=== PATIENT | female | born 1990 | race Caucasian/White ===

== ENCOUNTER 2017-05-27 14:48 | Emergency (ER) | payer OTHER, MEDICAID ==
[2017-05-27] MEDS ORDERED: CLINDAMYCIN 150 MG CAP PO ONE (15:54)
--- NOTE | 2017-05-27 15:59 | Emergency Department Record ---
History of Present Illness - General Chief complaint: Abscess Stated complaint: LT BREAST PAIN,LUMP,SWELLING Time Seen by Provider: 05/27/17 15:49 Source: Patient Mode of Arrival: Ambulatory Limitations: No limitations - History of Present Illness Initial comments: The patient is here due to 2 days of L breast fullness with very minimal drainage from the nipple and mild pain. She is concerned she is getting an infection. The patient denies being and is not breast feeding. MD complaint: Other Onset/Timin -: Days(s) Severity: Mild Severity scale (1-10): 3 Quality: Aching Consistency: Constant Improves with: None Worsens with: None Context: None Associated symptoms: Denies other symptoms Treatment Prior to Arrival Comment:: Motrin, Tylenol, cold and warm compresses - Related Data Home Medications Medication Instructions Recorded Confirmed Last Taken Oxycodone HCl/Acetaminophen 1 tab PO Q6H PRN 05/27/17 05/27/17 05/27/17 [Percocet 10mg/325mg] Previous Rx's Medication Instructions Recorded Clindamycin HCl [Cleocin HCl] 300 mg PO QID #28 capsule 05/27/17 Allergies Allergy/AdvReac Type Severity Reaction Status Date / Time No Known Drug Allergies Allergy Verified 05/27/17 15:17 Travel Screening - Travel/Exposure Within Last 30 Days Have you traveled within the last 30 days?: No Review of Systems Constitutional: Denies: Chills, Fever Eyes: Denies: Eye discharge ENT: Denies: Congestion Past Medical History - SOCIAL HISTORY Smoking Status: Current every day smoker Alcohol Use: None Drug Use: Occasional Drug Use Detail:: Marijuana - RESPIRATORY Hx Respiratory Disorders: No - CARDIOVASCULAR Hx Cardio Disorders: No - NEURO Hx Neuro Disorders: No - GI Hx GI Disorders: No - Hx Genitourinary Disorders: No - ENDOCRINE Hx Endocrine Disorders: No - MUSCULOSKELETAL Hx Musculoskeletal Disorders: Yes Hx Back Injury: Yes - PSYCH Hx Psych Problems: No - HEMATOLOGY/ONCOLOGY Hx Hematology/Oncology Disorders: No Family Medical History Any Significant Family History?: No Physical Exam - General General Appearance: Alert, Oriented x3, Cooperative, No acute distress - Head Head exam: Atraumatic, Normocephalic, Normal inspection - Eye Eye exam: Normal appearance, PERRL - Neck Neck exam: Normal inspection, Full ROM. negative: Tenderness - Respiratory Respiratory exam: Normal lung sounds bilaterally. negative: Respiratory distress - Cardiovascular Cardiovascular Exam: Regular rate, Normal rhythm, Normal heart sounds, Other ( The L breast is mildly tender inferior to the nipple with very slight erythema and fullness. There is no abscess or any fluctuance.) Course Vital Signs 05/27/17 15:13 Temperature 98.0 F Pulse Rate 92 H Respiratory 18 Rate Blood Pressure 139/92 Pulse Ox 98 - Reevaluation(s) Reevaluation #1: I did discuss with the patient that it appears she has a mild L breast infection. She is to take the Clindamycin and use warm compresses and is to see her PCP for recheck in 1-2 days. 05/27/17 15:57 Disposition Disposition: Discharge Clinical Impression: Cellulitis of breast Disposition: Home, Self-Care Condition: (1) Good Instructions: Cellulitis (ED) Additional Instructions: Please use warm compresses to the L breast during the day every 2 hours. Take the Clindamcyin as directed. Please see your PCP for recheck in 1-2 days. Return to the ER for any worsening symptoms. Prescriptions: Clindamycin HCl [Cleocin HCl] 300 mg PO QID #28 capsule Forms: Patient Portal Access Time of Disposition: 15:59 Quality - Quality Measures Quality Measures: N/A - Blood Pressure Screening View Details: Yes Blood Pressure Classification: Hypertensive Reading Systolic Measurement: 139 Diastolic Measurement: 92 Screening for High Blood Pressure: < Pre-Hypertensive BP, F/U Documented > [ G8950] Pre-Hypertensive Follow-up Interventions: Follow-up with rescreen every year.
== END 2017-05-27 16:08 | disposition home or self-care (01) ==
LOC: ER 14:48
DX: N61.1 Abscess of the breast and nipple (principal)
CPT/HCPCS: 99282

== ENCOUNTER 2017-08-28 22:08 | Emergency (ER) | payer OTHER, MEDICAID ==
--- NOTE | 2017-08-28 22:44 | Emergency Department Record ---
History of Present Illness - General Chief Complaint: Ankle/Foot Injury Stated Complaint: RT FOOT PAIN Time Seen by Provider: 08/28/17 22:28 Source: Patient Mode of Arrival: Ambulatory Limitations: No limitations - History of Present Illness Initial Comments: The patient initially injured her R foot 4 months ago and it has been persistently painful since. She brought her daughter in to be seen so she figured she would get it checked out. She was told she may have a bunion which is causing the pain. The patient has been walking on it for 4 months with no difficulty but pain. Complaint: Foot injury Onset/Timin -: Month(s) Severity scale (1-10): 6 Improves With: Nothing Worsens With: Movement, Weight bearing Associated Symptoms: Swelling - Related Data Home Medications Medication Instructions Recorded Confirmed Last Taken Gabapentin [Neurontin] 300 mg PO BID 08/28/17 08/28/17 08/28/17 Allergies Allergy/AdvReac Type Severity Reaction Status Date / Time No Known Drug Allergies Allergy Verified 05/27/17 15:17 Travel Screening - Travel/Exposure Within Last 30 Days Have you traveled within the last 30 days?: No - Travel Symptoms Symptom Screening: None Review of Systems Constitutional: Denies: Chills, Fever Eyes: Denies: Eye discharge ENT: Denies: Congestion Respiratory: Denies: Cough Past Medical History - SOCIAL HISTORY Smoking Status: Current every day smoker - RESPIRATORY Hx Respiratory Disorders: No - CARDIOVASCULAR Hx Cardio Disorders: No - NEURO Hx Neuro Disorders: No - GI Hx GI Disorders: No - Hx Genitourinary Disorders: No - ENDOCRINE Hx Endocrine Disorders: No - MUSCULOSKELETAL Hx Musculoskeletal Disorders: Yes Hx Back Injury: Yes - PSYCH Hx Psych Problems: No - HEMATOLOGY/ONCOLOGY Hx Hematology/Oncology Disorders: No Family Medical History Any Significant Family History?: Yes Hx Cancer: Grandparents Hx Diabetes: Grandparents Hx HTN: Grandparents Physical Exam - General General Appearance: Alert, Cooperative, No acute distress - Head Head exam: Atraumatic, Normocephalic - Eye Eye exam: Normal appearance, PERRL - Extremities Extremities exam: Normal inspection (There is no swelling, bruising, or edema noted.), Full ROM, Tenderness (There is tenderness to the midfoot and plantar fascia area.), Other (There is no ankle swelling, bruising or tenderness. The ankle has normal ROM.). negative: Joint swelling - Neurological Neurological exam: Alert, Normal gait. negative: Abnormal gait, Motor sensory deficit Course Vital Signs 08/28/17 22:20 Temperature 98.6 F Pulse Rate 98 H Respiratory 16 Rate Blood Pressure 133/88 Pulse Ox 95 - Reevaluation(s) Reevaluation #1: I did explain to the patient that the xrays smith appear normal to me. She is to see her PCP or a Lead [employer] Developer for further evaluation. 08/28/17 23:09 Medical Decision Making - Data Complexity MDM Data: X-Ray Ordered and/or Reviewed - Radiology Data Radiology results: Image reviewed (R Foot: Neg for any acute abnormality.) Disposition Disposition: Discharge Clinical Impression: Chronic foot pain Qualifiers: Laterality: right Qualified Code(s): M79.671 - Pain in right foot Disposition: Home, Self-Care Condition: (1) Good Instructions: Arthralgia (ED) Additional Instructions: Please see your PCP or a Lead Android Developer for further evaluation of the foot pain. Forms: Patient Portal Access Time of Disposition: 23:10 Quality - Quality Measures Quality Measures: N/A - Blood Pressure Screening View Details: Yes Does Patient Have Any of the Following: No Blood Pressure Classification: Pre-Hypertensive BP Reading Systolic Measurement: 133 Diastolic Measurement: 88 Screening for High Blood Pressure: < Pre-Hypertensive BP, F/U Documented > [ G8950] Pre-Hypertensive Follow-up Interventions: Referral to alternative/primary care provider.
--- NOTE | 2017-08-30 18:04 | RADIOLOGY REPORT ---
EXAM: FOOT, RIGHT 3 VIEWS HISTORY: CONTINUED PAIN IN RIGHT FOOT FOUR MONTHS POST INJURY. TECHNIQUE: Three views of the right foot. COMPARISON: None. ENCOUNTER: Initial. FINDINGS: There is normal bone mineralization. No fracture, dislocation, or destructive bone lesion is seen. The articular relations are maintained. A developmental ossicle is suggested near the dorsal margin of the talonavicular joint. No focal soft tissue abnormality. IMPRESSION: NORMAL RIGHT FOOT. JOB NUMBER: [id number] MTDD
== END 2017-08-28 23:18 | disposition home or self-care (01) ==
LOC: ER 22:08
DX: M79.671 Pain in right foot (principal); G89.21 Chronic pain due to trauma
CPT/HCPCS: 99283

== ENCOUNTER 2018-04-16 20:06 | Emergency (ER) | payer OTHER, MEDICAID ==
[2018-04-16] MEDS ORDERED: KETOROLAC 30 MG/ML VIAL IVP ONE (20:48)
[2018-04-16] MEDS ORDERED: ONDANSETRON HCL IV 4 MG/2 ML VIAL IVP ONE (20:48)
--- NOTE | 2018-04-16 20:55 | Emergency Department Record ---
History of Present Illness - General Chief Complaint: Abdominal Pain Stated Complaint: ABDOMINAL PAIN Time Seen by Provider: 04/16/18 20:48 Source: Patient Mode of Arrival: Ambulatory Limitations: No limitations - History of Present Illness Initial Comments: 27 yo female presents to ED for evaluation of pelvic pain and bleeding following accidental removal of her Mirena. Patient reports lower abdominal pelvic cramping and pain associated with vaginal bleeding that has improved. Patient denies fevers, chills, or recent illness, does report 1 episode of vomiting this afternoon. Patient denies health problems at her baseline. MD Complaint: Abdominal pain Onset/Timin -: Days(s) Location: Suprapubic Radiation: Back, L flank Severity scale (1-10): 7 Quality: Aching, Cramping Consistency: Intermittent Improves With: Nothing Worsens With: Nothing Associated Symptoms: Nausea, Vomiting - Related Data Patient : No Allergies Allergy/AdvReac Type Severity Reaction Status Date / Time No Known Drug Allergies Allergy Verified 05/27/17 15:17 Travel Screening - Travel/Exposure Within Last 30 Days Have you traveled within the last 30 days?: No - Travel Symptoms Symptom Screening: None Review of Systems Constitutional: Denies: Chills, Fever, Malaise, Night sweats Eyes: Denies: Eye discharge, Eye pain ENT: Denies: Congestion, Ear pain, Epistaxis Respiratory: Denies: Cough, Dyspnea Cardiovascular: Denies: Chest pain, Dyspnea on exertion Endocrine: Denies: Fatigue, Heat or cold intolerance Gastrointestinal: Reports: Abdominal pain, Nausea, Vomiting. Denies: Constipation Genitourinary: Denies: Incontinence, Retention Musculoskeletal: Denies: Arthralgia, Back pain, Gout, Joint swelling Skin: Denies: Bruising, Change in color Neurological: Denies: Abnormal gait, Confusion, Headache, Seizure Psychiatric: Denies: Anxiety Hematological/Lymphatic: Denies: Anemia, Blood Clots Past Medical History - SOCIAL HISTORY Smoking Status: Current every day smoker - RESPIRATORY Hx Respiratory Disorders: No - CARDIOVASCULAR Hx Cardio Disorders: No - NEURO Hx Neuro Disorders: No - GI Hx GI Disorders: Yes Hx Hepatitis/Jaundice: Yes (Hepatitis C) - Hx Genitourinary Disorders: No - ENDOCRINE Hx Endocrine Disorders: No - MUSCULOSKELETAL Hx Musculoskeletal Disorders: Yes Hx Back Injury: Yes - PSYCH Hx Psych Problems: No - HEMATOLOGY/ONCOLOGY Hx Hematology/Oncology Disorders: No Family Medical History Any Significant Family History?: Yes Hx Cancer: Grandparents Hx Diabetes: Grandparents Hx HTN: Grandparents Physical Exam - General General Appearance: Alert, Oriented x3, Cooperative, Mild distress Limitations: No limitations - Head Head exam: Atraumatic, Normocephalic, Normal inspection Head exam detail: negative: Abrasion, Contusion, Lainez's sign, General tenderness, Hematoma, Laceration - Eye Eye exam: Normal appearance. negative: Conjunctival injection, Periorbital swelling, Periorbital tenderness, Scleral icterus - ENT Ear exam: negative: Auricular hematoma, Auricular trauma Nasal Exam: negative: Active bleeding, Discharge, Dried blood, Foreign body Mouth exam: negative: Drooling, Laceration, Muffled voice, Tongue elevation - Neck Neck exam: Normal inspection. negative: Meningismus, Tenderness - Respiratory Respiratory exam: Normal lung sounds bilaterally. negative: Rales, Respiratory distress, Rhonchi, Stridor - Cardiovascular Cardiovascular Exam: Regular rate, Normal rhythm, Normal heart sounds - GI/Abdominal GI/Abdominal exam: Soft, Tenderness (Mild-moderate TTP LLQ, suprapubic region, no rebound or guarding present. No peritoneal signs are present on examination. ). negative: Rebound, Rigid - Rectal Rectal exam: Deferred - exam: Normal speculum exam. negative: Vaginal bleeding, Vaginal discharge, Vaginal erythema - Extremities Extremities exam: Normal inspection. negative: Calf tenderness, Pedal edema, Tenderness - Back Back exam: Denies: CVA tenderness (R), CVA tenderness (L) - Neurological Neurological exam: Alert, Normal gait, Oriented X3 - Psychiatric Psychiatric exam: Normal affect, Normal mood - Skin Skin exam: Normal color. negative: Abrasion Type of lesion: negative: abrasion Course Vital Signs 04/16/18 20:23 Temperature 97.9 F Pulse Rate [ 96 H Pulse Ox Probe] Respiratory 16 Rate Blood Pressure 131/87 [Left Arm] Pulse Ox 98 - Reevaluation(s) Reevaluation #1: 04/16/18 20:54 Patient was seen and examined, as US is not currently available, will initiate laboratory studies and CT imaging to exclude uterine retained FB. Will administer Toradol and Zofran for her cramping symptoms. Patient agrees with the plan of care as discussed. Reevaluation #2: 04/16/18 21:43 Labs reviewed and are grossly unremarkable for an acute process. Patient is just now returning from CT imaging. Patient denies any improvement in her pain symptoms following toradol administration, will order Fentanyl 50 mcg for improved analgesia. Reevaluation #3: 04/16/18 22:06 CT Pelvis: No FB Normal appendix Normal ovaries No acute process Reevaluation #4: 04/16/18 22:21 Pelvic examination was performed, no bleeding or tears to the cervix are present on examination. Patient was again updated on all results, reports improvement in her pain symptoms following fentanyl, and appears stable for discharge at this time. Medical Decision Making - Lab Data Result diagrams: 04/16/18 21:04 04/16/18 21:04 Disposition Disposition: Discharge Clinical Impression: Pelvic pain Disposition: Home, Self-Care Condition: (2) Stable Instructions: Abdominal Pain (ED) Additional Instructions: Return to ED if your symptoms worsen or if you have any concerns. Ibuprofen as directed. Follow-up with Dr. Nesbitt in 1-3 days as directed. Forms: Patient Portal Access Time of Disposition: 22:29 Quality - Quality Measures Quality Measures: N/A - Blood Pressure Screening Does Patient Have Any of the Following: No Blood Pressure Classification: Pre-Hypertensive BP Reading Systolic Measurement: 124 Diastolic Measurement: 79 Screening for High Blood Pressure: < Pre-Hypertensive BP, F/U Documented > [ G8950] Pre-Hypertensive Follow-up Interventions: Referral to alternative/primary care provider.
[2018-04-16 21:20] LABS: BASO % 0.4 % (0-6); EOS % 0.4 % (0-6); HEMOGLOBIN 15.8 gm/dl (11.6-16.0); LYMPH % 17.7 % (16-45); MEAN CELL VOLUME 92.7 fl (81-97); MEAN CORPUSCULAR HEMOGLOBIN 31.9 pg (27-33); MEAN CORPUSCULAR HGB CONC 34.3 g/dl (32-36); MEAN PLATELET VOLUME 10.3 fl (7.4-10.4); MONO % 10.5 % (0-9); PLATELET COUNT 266 K/uL (130-400); RED BLOOD COUNT 4.96 M/uL (3.80-5.40); RED CELL DISTRIBUTION WIDTH 13.5 % (11.5-14.5); WHITE BLOOD COUNT W/O DIFF 8.3 K/uL (4.2-12.2)
[2018-04-16 21:20] LABS: URINE APPEARANCE CLEAR; URINE BILIRUBIN NEGATIVE (NEGATIVE); URINE BLOOD SMALL (NEGATIVE); URINE COLOR YELLOW; URINE GLUCOSE (UA) NEGATIVE (NEGATIVE); URINE KETONE NEGATIVE (NEGATIVE); URINE LEUKOCYTE ESTERASE NEGATIVE (NEGATIVE); URINE NITRITE NEGATIVE (NEGATIVE); URINE PROTEIN NEGATIVE (NEGATIVE); URINE UROBILINOGEN 0.2 E.U./dL (0.20 - 1.00)
[2018-04-16 21:21] LABS: URINE BACTERIA NONE SEEN; URINE EPITHELIAL CELLS 0 - 2 (FEW); URINE WBC 0 - 2 (0-2/hpf)
[2018-04-16 21:33] LABS: BLOOD UREA NITROGEN 15 mg/dL (6-20); CREATININE 0.6 mg/dL (0.5-0.9); EST GLOMERULAR FILTRATION RATE > 60 mL/min; TOTAL PROTEIN 7.6 g/dL (6.6-8.7)
[2018-04-16 21:36] LABS: GLUCOSE,RANDOM 112 mg/dL (74-109)
[2018-04-16 21:38] LABS: ALB/GLOB RATIO 1.6 (1.1-1.8); ALBUMIN 4.7 g/dL (4.0-5.0); ALKALINE PHOSPHATASE 105 U/L (35-104); ALT/SGPT 15 U/L (<33); AST/SGOT 17 U/L (10.0-35.0)
[2018-04-16 21:39] LABS: LIPASE 23 U/L (13-60)
[2018-04-16] MEDS ORDERED: FENTANYL PF 100MCG/2ML VIAL IVP ONE (21:48)
--- NOTE | 2018-04-18 14:54 | CT SCAN REPORT ---
EXAM: CT OF THE PELVIS WITH IV CONTRAST HISTORY: PELVIS AND LOWER BACK PAIN. TECHNIQUE: Helical CT scan of the pelvis was obtained after the administration of 100 ml intravenous Omnipaque 300. No oral contrast was administered. Comparison: None. FINDINGS: The bowel has normal caliber. The retrocecal appendix is normal. The uterus has normal size. The ovaries are symmetric and have normal size. No abnormal cyst. No free fluid in the pelvis. No adenopathy. The venous structures are patent. The musculoskeletal structures are unremarkable. IMPRESSION: 1. NORMAL APPENDIX. NORMAL OVARIES. 2. NO ACUTE ABNORMALITIES ARE IDENTIFIED IN THE PELVIS TO EXPLAIN THIS PATIENT' S PAIN. JOB NUMBER: [id number] MTDD
== END 2018-04-16 22:52 | disposition home or self-care (01) ==
LOC: ER 20:06
DX: R10.2 Pelvic and perineal pain (principal); R11.2 Nausea with vomiting, unspecified; F17.210 Nicotine dependence, cigarettes, uncomplicated
CPT/HCPCS: 72193; 80053; 81001; 81025; 83690; 85025; 96374; 96375; 99284; J1885; J2405

== ENCOUNTER 2019-10-13 18:17 | Emergency (ER) | payer MEDICAID, OTHER ==
--- NOTE | 2019-10-13 19:30 | Emergency Department Record ---
History of Present Illness - General Chief complaint: Pain Stated complaint: RT RIB PAIN Time Seen by Provider: 10/13/19 18:52 Source: Patient Mode of Arrival: Ambulatory Limitations: No limitations - History of Present Illness Initial comments: pt has had ruq ap for 1 month that is intermittent and severe at times. she has no n/v/c. she has had diarrhea. taking a breath makes it worse. her aunt told her it was posssibly her gb. Complaint: Abdominal Pain Onset/Timin -: Month(s) Severity scale (1-10): 8 Quality: Sharp Improves with: Nothing Worsens with: Nothing Associated Symptoms: Denies other symptoms - Related Data Home Medications Medication Instructions Recorded Confirmed Last Taken Dextroamphetamine/Amphetamine 30 mg PO DAILY 10/13/19 10/13/19 Unknown [Adderall] Hydromorphone HCl [Dilaudid] 4 mg PO QID 10/13/19 10/13/19 Unknown Pregabalin [Lyrica] 100 mg PO QHS 10/13/19 10/13/19 Unknown Allergies Allergy/AdvReac Type Severity Reaction Status Date / Time No Known Drug Allergies Allergy Verified 10/13/19 18:56 Travel Screening - Travel/Exposure Within Last 30 Days Have you traveled within the last 30 days?: No Review of Systems Reviewed: No additional complaints except as noted below Constitutional: Reports: As per HPI. Denies: Chills, Fever, Malaise, Night sweats, Weakness, Weight change Eyes: Reports: As per HPI. Denies: Eye discharge, Eye pain, Photophobia, Vision change ENT: Reports: As per HPI. Denies: Congestion, Dental pain, Ear pain, Epistaxis, Hearing loss, Throat pain Respiratory: Reports: As per HPI. Denies: Cough, Dyspnea, Hemoptysis, Stridor, Wheezes Cardiovascular: Reports: As per HPI. Denies: Arrhythmia, Chest pain, Dyspnea on exertion, Edema, Murmurs, Orthopnea, Palpitations, Paroxysmal nocturnal dyspnea, Rheumatic Fever, Syncope Endocrine: Reports: As per HPI. Denies: Fatigue, Heat or cold intolerance, Polydipsia, Polyuria Gastrointestinal: Reports: As per HPI, Abdominal pain. Denies: Constipation, Diarrhea, Hematemesis, Hematochezia, Melena, Nausea, Vomiting Genitourinary: Reports: As per HPI. Denies: Abnormal menses, Discharge, Dyspareunia, Dysuria, Frequency, Hematuria, Incontinence, Retention, Urgency Musculoskeletal: Reports: As per HPI. Denies: Arthralgia, Back pain, Gout, Joint swelling, Myalgia, Neck pain Skin: Reports: As per HPI. Denies: Bruising, Change in color, Change in hair/nails, Lesions, Pruritus, Rash Neurological: Reports: As per HPI. Denies: Abnormal gait, Confusion, Headache, Numbness, Paresthesias, Seizure, Tingling, Tremors, Vertigo, Weakness Psychiatric: Reports: As per HPI. Denies: Anxiety, Auditory hallucinations, Depression, Homicidal thoughts, Suicidal thoughts, Visual hallucinations Hematological/Lymphatic: Reports: As per HPI. Denies: Anemia, Blood Clots, Easy bleeding, Easy bruising, Swollen glands Past Medical History - SOCIAL HISTORY Smoking Status: Current every day smoker Alcohol Use: Rare Drug Use: Occasional Drug Use Detail:: Marijuana - RESPIRATORY Hx Respiratory Disorders: No - CARDIOVASCULAR Hx Cardio Disorders: No - NEURO Hx Neuro Disorders: No - GI Hx GI Disorders: Yes Hx Hepatitis/Jaundice: Yes (Hepatitis C) - Hx Genitourinary Disorders: No - ENDOCRINE Hx Endocrine Disorders: No - MUSCULOSKELETAL Hx Musculoskeletal Disorders: Yes Hx Back Injury: Yes ( defect) - PSYCH Hx Psych Problems: No - HEMATOLOGY/ONCOLOGY Hx Hematology/Oncology Disorders: No Family Medical History Any Significant Family History?: Yes Hx Cancer: Grandparents Hx Diabetes: Grandparents Hx HTN: Grandparents Physical Exam - General General Appearance: Alert, Oriented x3, Cooperative, Mild distress - Head Head exam: Normal inspection - Eye Eye exam: Normal appearance, PERRL, EOMI Pupils: Normal accommodation - ENT ENT exam: Normal exam, Mucous membranes moist, Normal external ear exam, Normal orophraynx Ear exam: Normal external inspection. negative: External canal tenderness Nasal Exam: Normal inspection. negative: Discharge, Sinus tenderness Mouth exam: Normal external inspection, Tongue normal Teeth exam: Normal inspection. negative: Dental caries Throat exam: Normal inspection. negative: Tonsillar erythema, Tonsillar exudate - Neck Neck exam: Normal inspection, Full ROM. negative: Tenderness - Respiratory Respiratory exam: Normal lung sounds bilaterally. negative: Respiratory distress - Cardiovascular Cardiovascular Exam: Normal rhythm, Normal heart sounds, Tachycardia - GI/Abdominal GI/Abdominal exam: Soft, Normal bowel sounds, Tenderness (ruq) - Rectal Rectal exam: Deferred - exam: Deferred - Extremities Extremities exam: Normal inspection, Full ROM, Normal capillary refill. negative: Tenderness - Back Back exam: Reports: Normal inspection, Full ROM. Denies: Muscle spasm, Rash noted, Tenderness - Neurological Neurological exam: Alert, CN II-XII intact, Normal gait, Oriented X3 - Psychiatric Psychiatric exam: Normal affect, Normal mood - Skin Skin exam: Dry, Intact, Normal color, Warm Course Vital Signs 10/13/19 18:54 Temperature 98.0 F Pulse Rate [ 125 H Pulse Ox Probe] Respiratory 20 Rate Blood Pressure 158/102 [Left Arm] Pulse Ox 98 - Reevaluation(s) Reevaluation #1: 10/13/19 21:31 ct is neg. liver enzymes mildly elevated. pt is coming in tomorrow for us. Medical Decision Making - Lab Data Result diagrams: 10/13/19 19:15 10/13/19 19:15 Disposition Disposition: Discharge Clinical Impression: RUQ abdominal pain, Biliary colic, Elevated liver enzymes Disposition: Home, Self-Care Condition: (1) Good Instructions: Abdominal Pain (ED), Biliary Colic (ED), Gallstones (ED) Additional Instructions: follow up tomorrow for ultrasound of gall bladder. check in to the emergency department. return sooner if worse. npo after midnight. Forms: Patient Portal Access Quality - Quality Measures Quality Measures: N/A - Blood Pressure Screening Does Patient Have Any of the Following: No Blood Pressure Classification: Hypertensive Reading Systolic Measurement: 158 Diastolic Measurement: 102 Screening for High Blood Pressure: < First Hypertensive BP, F/U Documented > [G8950] First Hypertensive Follow-up Interventions: Follow-up with rescreen GT 1 day and LT 4 weeks.
[2019-10-13 19:35] LABS: BASO % 0.6 % (0-6); EOS % 0.4 % (0-6); HEMATOCRIT 44.1 % (35.0-47.0); HEMOGLOBIN 15.5 gm/dl (11.6-16.0); LYMPH % 27.8 % (16-45); MEAN CELL VOLUME 92.5 fl (81-97); MEAN CORPUSCULAR HEMOGLOBIN 32.5 pg (27-33); MEAN CORPUSCULAR HGB CONC 35.1 g/dl (32-36); MEAN PLATELET VOLUME 10.5 fl (7.4-10.4); MONO % 11.2 % (0-9); PLATELET COUNT 242 K/uL (130-400); RED BLOOD COUNT 4.77 M/uL (3.80-5.40); RED CELL DISTRIBUTION WIDTH 12.7 % (11.5-14.5); WHITE BLOOD COUNT W/O DIFF 8.3 K/uL (4.2-12.2)
[2019-10-13 19:47] LABS: BLOOD UREA NITROGEN 15 mg/dL (6-20); CREATININE 0.6 mg/dL (0.5-0.9); EST GLOMERULAR FILTRATION RATE > 60 mL/min; LIPASE 55 U/L (13-60); TOTAL PROTEIN 7.7 g/dL (6.6-8.7)
[2019-10-13 19:49] LABS: GLUCOSE,RANDOM 150 mg/dL (74-109)
[2019-10-13 19:52] LABS: ALB/GLOB RATIO 1.8 (1.1-1.8); ALBUMIN 4.9 g/dL (4.0-5.0); ALKALINE PHOSPHATASE 87 U/L (35-104); ALT/SGPT 76 U/L (<33); AST/SGOT 68 U/L (10.0-35.0)
[2019-10-13] MEDS ORDERED: KETOROLAC 30 MG/ML VIAL IVP ONE (20:40)
--- NOTE | 2019-10-13 21:23 | CT SCAN REPORT ---
EXAMINATION: CT Abdomen and Pelvis without Contrast EXAM DATE: 10/13/2019 8:42 PM TECHNIQUE: Spiral CT images were obtained from the lung bases to the ischial tuberosities without int ravenous contrast. Coronal and sagittal 2-D reconstructions were made from source images. INDICATION: ruq pain 3 weeks COMPARISON: 04/16/2018. FINDINGS: Evaluation of solid organs is degraded due to lack of intravenous contrast. Abdomen: The liver, spleen, pancreas, adrenals, and kidneys are normal. No free fluid or free air. Suboptimal evaluation of bowel due to nondistention and lack of oral contrast. No bowel dilation. Pelvis: The pelvic organs are unremarkable. Stable appearance of the ovaries. No free fluid or free air. No i nflammatory change. The appendix is normal. IMPRESSION: 1. Negative. Dictated by: Naseem Cross MD on 10/13/2019 9:14 PM. .
[2019-10-13] MEDS ORDERED: HYDROMORPHONE HCL 2 MG/ML VIAL IVP ONE (21:30)
== END 2019-10-13 21:44 | disposition home or self-care (01) ==
LOC: ER 18:17
DX: K80.50 Calculus of bile duct without cholangitis or cholecystitis without obstruction (principal); R19.7 Diarrhea, unspecified; F17.210 Nicotine dependence, cigarettes, uncomplicated; R10.11 Right upper quadrant pain; R94.5 Abnormal results of liver function studies
CPT/HCPCS: 74176; 80053; 83690; 85025; 85379; 96374; 96375; 99284; J1885

== ENCOUNTER 2019-10-14 13:34 | Emergency (ER) | payer MEDICAID ==
--- NOTE | 2019-10-14 13:55 | Emergency Department Record ---
History of Present Illness - General Chief Complaint: Recheck - Other Stated Complaint: ULTRASOUND Time Seen by Provider: 10/14/19 13:47 Source: Patient Mode of arrival: Ambulatory Limitations: No limitations - History of Present Illness Initial Comments: 29 yo female presents with intermittent RUQ pain for about a month. She was in the ED last evening. She returns today for an US and recheck. The pain is only in the RUQ. She has some associated diarrhea. No blood in the stools. No rash. No fever. She states her appetite is normal. She denies abdominal surgery history. She has a history of Hepatitis C. Complaint: Other (RUQ) -: Month(s) Initial Visit For: Other Returns Today for: Other - Related Data Allergies Allergy/AdvReac Type Severity Reaction Status Date / Time No Known Drug Allergies Allergy Verified 10/14/19 13:50 Review of Systems Constitutional: Denies: Chills, Fever, Malaise Eyes: Denies: Eye discharge ENT: Denies: Congestion, Throat pain Respiratory: Denies: Cough Cardiovascular: Denies: Chest pain, Palpitations, Syncope Endocrine: Denies: Fatigue Gastrointestinal: Reports: Abdominal pain Genitourinary: Denies: Dysuria, Urgency Musculoskeletal: Denies: Arthralgia, Back pain, Joint swelling Neurological: Denies: Headache, Numbness, Weakness Psychiatric: Denies: Anxiety Hematological/Lymphatic: Denies: Easy bleeding, Easy bruising Past Medical History - SOCIAL HISTORY Smoking Status: Current every day smoker Drug Use: Occasional Drug Use Detail:: Marijuana - RESPIRATORY Hx Respiratory Disorders: No - CARDIOVASCULAR Hx Cardio Disorders: No - NEURO Hx Neuro Disorders: No - GI Hx GI Disorders: Yes Hx Hepatitis/Jaundice: Yes (Hepatitis C) - Hx Genitourinary Disorders: No - ENDOCRINE Hx Endocrine Disorders: No - MUSCULOSKELETAL Hx Musculoskeletal Disorders: Yes Hx Back Injury: Yes ( defect) - PSYCH Hx Psych Problems: No - HEMATOLOGY/ONCOLOGY Hx Hematology/Oncology Disorders: No Family Medical History Hx Cancer: Grandparents Hx Diabetes: Grandparents Hx HTN: Grandparents Physical Exam - General General Appearance: Alert, Oriented x3, Cooperative, No acute distress Limitations: No limitations - Head Head exam: Normal inspection - Eye Eye exam: Normal appearance, PERRL. negative: Conjunctival injection, Scleral icterus - ENT ENT exam: Normal exam, Mucous membranes moist Ear exam: Normal external inspection Nasal Exam: Normal inspection Mouth exam: Normal external inspection - Neck Neck exam: Normal inspection - Respiratory Respiratory exam: Normal lung sounds bilaterally. negative: Respiratory distress - Cardiovascular Cardiovascular Exam: Regular rate, Normal rhythm, Normal heart sounds - GI/Abdominal GI/Abdominal exam: Soft, Tenderness (Very soft abdomen. Tender in the RUQ only. No mass. No obvious enlargement of the liver). negative: Distended, Guarding, Rebound, Rigid - Rectal Rectal exam: Deferred - exam: Deferred - Extremities Extremities exam: Normal inspection. negative: Calf tenderness, Pedal edema - Back Back exam: Denies: CVA tenderness (R), CVA tenderness (L) - Neurological Neurological exam: Alert, Oriented X3 Course - Reevaluation(s) Reevaluation #1: 10/14/19 13:51 Labs from last evening were reviewed Mild increase in LFT's. This will be rechecked The CT was reviewed. It is negative for acute process. 10/14/19 14:34 LFT's reviewed No significant changes. 10/14/19 15:42 US is normal She will be referred to her PCP and to general surgery for further consideration of the RUQ for one month with normal CT and US. Could consider outpatient HIDA scan for biliary dysfunction Medical Decision Making - Lab Data Result diagrams: 10/14/19 13:56 Disposition Disposition: Discharge Clinical Impression: RUQ abdominal pain Disposition: Home, Self-Care Condition: (1) Good Instructions: Abdominal Pain (ED) Additional Instructions: Review this ER visit and the tests performed with your family doctor Call your doctor for the next available follow up appointment Return to the ER for a recheck if worse, any new concerns or questions Take the prescriptions provided as directed Referrals: Ky Snow [DOCTOR OF OSTEOPATH] - [facility] [Provider Group] Forms: Patient Portal Access Time of Disposition: 15:43 Quality - Quality Measures Quality Measures: N/A - Blood Pressure Screening Does Patient Have Any of the Following: No Blood Pressure Classification: Hypertensive Reading Systolic Measurement: 149 Diastolic Measurement: 95 Screening for High Blood Pressure: < Pre-Hypertensive BP, F/U Documented > [G8950] Pre-Hypertensive Follow-up Interventions: Referral to alternative/primary care provider.
[2019-10-14 14:15] LABS: BLOOD UREA NITROGEN 8 mg/dL (6-20); CREATININE 0.4 mg/dL (0.5-0.9); EST GLOMERULAR FILTRATION RATE > 60 mL/min
[2019-10-14 14:16] LABS: TOTAL PROTEIN 7.6 g/dL (6.6-8.7)
[2019-10-14 14:18] LABS: GLUCOSE,RANDOM 103 mg/dL (74-109)
[2019-10-14 14:20] LABS: ALB/GLOB RATIO 1.6 (1.1-1.8); ALBUMIN 4.7 g/dL (4.0-5.0); ALT/SGPT 98 U/L (<33); AST/SGOT 86 U/L (10.0-35.0)
[2019-10-14 14:21] LABS: ALKALINE PHOSPHATASE 79 U/L (35-104)
--- NOTE | 2019-10-14 15:40 | ULTRASOUND REPORT ---
EXAMINATION: Ultrasound Abdomen Complete EXAM DATE: 10/14/2019 3:18 PM TECHNIQUE: Complete ultrasound of the abdomen was performed. Images were recorded and stored on PAC S. INDICATION: RUQ pain FINDINGS: Liver: Normal size and echotexture. Gallbladder: No abnormal internal echoes. There is no gallbladder wall thickening or pericholecystic fluid. The technologist reports no tenderness over the gallbladder. Common Bile Duct: There is no biliary dilatation. The common duct measures 4 mm. Pancreas: The pancreas is normal in size and configuration. Spleen: Normal size spleen. Right Kidney: The right kidney is unremarkable. Left Kidney: The left kidney is unremarkable. Upper Abdominal Aorta: Normal caliber. Inferior Vena Cava: Normal. IMPRESSION: 1. Normal exam. Dictated by: Naseem Cross MD on 10/14/2019 3:25 PM. .
== END 2019-10-14 15:56 | disposition home or self-care (01) ==
LOC: ER 13:34
DX: R10.11 Right upper quadrant pain (principal); R19.7 Diarrhea, unspecified; Z86.19 Personal history of other infectious and parasitic diseases; F17.210 Nicotine dependence, cigarettes, uncomplicated
CPT/HCPCS: 76700; 80053; 99283